=== PATIENT | female | born 1980 | race Caucasian/White ===

== ENCOUNTER 2019-01-30 15:59 | Emergency (ER) | payer OTHER ==
[~2019-01-30] VITALS: Ht 149.9 cm; Wt 39.5 kg
[2019-01-30] MEDS ORDERED: ADDERALL 20 MG20 MG PO (16:21)
== END 2019-01-30 20:11 | disposition home or self-care (01) ==
LOC: ER 15:59
DX: J06.9 Acute upper respiratory infection, unspecified (principal)